=== PATIENT | male | born 1995 | race Two or more races ===

== ENCOUNTER 2018-10-21 14:36 | Emergency (ER) | payer BC ==
[~2018-10-21] VITALS: Ht 177.8 cm; Wt 74.8 kg
[2018-10-21] MEDS ORDERED: HYDROcodone-ACET 5/325MG TAB PO ONE (17:45)
[2018-10-21] MEDS ORDERED: TETANUS-DIPTH-ACEL PERTUSSIS 0.5ML SYRG IM ONE (17:45)
[2018-10-21 17:55] VITALS: BP 137/60
== END 2018-10-21 18:08 | disposition home or self-care (01) ==
LOC: ER 14:36
DX: S42.002A Fracture of unspecified part of left clavicle, initial encounter for closed fracture (principal); R51 Headache; V28.0XXA Motorcycle driver injured in noncollision transport accident in nontraffic accident, initial encounter; Y93.89 Activity, other specified; Y99.8 Other external cause status; Y92.410 Unspecified street and highway as the place of occurrence of the external cause
CPT/HCPCS: 29105; 70450; 73030; 90471; 90715